=== PATIENT | male | born 2005 | race Hispanic/Latino ===

== ENCOUNTER 2024-06-08 02:30 | Emergency (ER) | payer OTHER ==
[2024-06-08] MEDS ORDERED: Boostrix 0.5 ML (Tdap) VIAL (>/=7 yrs of age) ONE (02:53)
[2024-06-08] MEDS ORDERED: Ibuprofen 200 MG TAB ONE (03:22)
== END 2024-06-08 03:25 | disposition home or self-care (01) ==
LOC: ERS 02:30
DX: S00.83XA Contusion of other part of head, initial encounter (principal); S61.210A Laceration without foreign body of right index finger without damage to nail, initial encounter; V03.99XA Pedestrian with other conveyance injured in collision with car, pick-up truck or van, unspecified whether traffic or nontraffic accident, initial encounter; Y92.480 Sidewalk as the place of occurrence of the external cause; Y93.01 Activity, walking, marching and hiking; Z23 Encounter for immunization
CPT/HCPCS: 70450; 70486; 90471; 90715